=== PATIENT | male | born 1985 | race Two or more races ===

== ENCOUNTER 2018-06-10 10:21 | Emergency (ER) | payer OTHER ==
[~2018-06-10] VITALS: Ht 177.8 cm; Wt 117.0 kg
[2018-06-10 10:35] VITALS: BP 140/92
[2018-06-10] MEDS ORDERED: diphenhydrAMINE 50 MG/ML VIAL IVP ONE (11:15)
[2018-06-10] MEDS ORDERED: FAMOTIDINE 20 MG/2 ML VIAL IVP ONE (11:15)
[2018-06-10] MEDS ORDERED: IV NORMAL SALINE 500ML 500 ML IV ONE (11:15)
[2018-06-10] MEDS ORDERED: HYDR25TA PO (12:40)
[2018-06-10] MEDS ORDERED: FAMO-63 PO (12:40)
--- NOTE | 2018-06-10 12:41 | PHYS DOC ---
Past History Past Medical History: Hypertension Alcohol Use: Occasionally Drug Use: None Adult General Chief Complaint Chief Complaint: ALLERGIC REACTION HPI HPI Patient is a 33-year-old male who presents with allergic symptoms for the past 5 days. 5 days ago his lips started swelling after eating frozen shellfish. This got better after taking oral Benadryl. However over the past 24-48 hours he started having other itchy bumps starting on his back as well as bilateral feet. He was seen at an urgent care this morning given a shot of steroids and sent to the emergency department for further evaluation and treatment. Patient was also seen by his primary care physician the past 24 hours and started on a Medrol Dosepak.[] Review of Systems Review of Systems Constitutional: Denies fever or chills [] Eyes: Denies change in visual acuity, redness, or eye pain [] HENT: Denies nasal congestion or sore throat [] Respiratory: Denies cough or shortness of breath [] Cardiovascular: No chest pain or palpitations[] GI: Denies abdominal pain, nausea, vomiting, bloody stools or diarrhea [] : Denies dysuria or hematuria [] Musculoskeletal: Denies back pain or joint pain [] Integument: See history of present illness[] Neurologic: Denies headache, focal weakness or sensory changes [] Endocrine: Denies polyuria or polydipsia [] All other systems were reviewed and found to be within normal limits, except as documented in this note. Current Medications Current Medications Current Medications Medications (Trade) Dose Ordered Sig/Regina Start Time Stop Time Status Last Admin Dose Admin Diphenhydramine HCl (Benadryl) 50 mg 1X ONCE 06/10/18 11:15 06/10/18 11:16 DC 06/10/18 11:51 50 MG Famotidine (Pepcid Vial) 20 mg 1X ONCE 06/10/18 11:15 06/10/18 11:16 DC 06/10/18 11:51 20 MG Sodium Chloride 500 ml @ 0 mls/hr 1X ONCE 06/10/18 11:15 06/10/18 11:16 DC 06/10/18 11:15 500 MLS/HR Allergies Allergies Allergies Coded Allergies Type Severity Reaction Last Updated Verified No Known Drug Allergies 06/10/18 No Physical Exam Physical Exam Constitutional: Well developed, well nourished, no acute distress, non-toxic appearance. [] HENT: Normocephalic, atraumatic, bilateral external ears normal, oropharynx moist, no oral exudates, nose normal. [] Eyes: PERRLA, EOMI, conjunctiva normal, no discharge. [] Neck: Normal range of motion, no tenderness, supple, no stridor. [] Cardiovascular:Heart rate regular rhythm, no murmur [] Lungs & Thorax: Bilateral breath sounds clear to auscultation [] Abdomen: Bowel sounds normal, soft, no tenderness, no masses, no pulsatile masses. [] Skin: Warm, dry, erythematous wheals on his back coming around to bilateral flanks.. [] Back: No tenderness, no CVA tenderness. [] Extremities: No tenderness, no cyanosis, no clubbing, ROM intact, no edema. [] Neurologic: Alert and oriented X 3, normal motor function, normal sensory function, no focal deficits noted. [] Psychologic: Affect normal, judgement normal, mood normal. [] Current Patient Data Vital Signs Vital Signs Date Time Temp Pulse Resp B/P (MAP) Pulse Ox O2 Delivery O2 Flow Rate FiO2 06/10/18 10:35 97.7 97 20 94 Room Air EKG EKG [] Radiology/Procedures Radiology/Procedures [] Course & Med Decision Making Course & Med Decision Making Pertinent Labs and Imaging studies reviewed. (See chart for details) ED course: Patient arrived, was placed in bed, tolerated exam well. Patient had IV access established was given IV fluids as well as antihistamines which improved his rash. Patient had no shortness of breath. Patient was discharged in improved condition.[] Dragon Disclaimer Dragon Disclaimer This electronic medical record was generated, in whole or in part, using a voice recognition dictation system. Departure Departure: Impression: Primary Impression: Allergic reaction Disposition: 01 HOME, SELF-CARE Condition: IMPROVED Referrals: PCP,UNKNOWN (PCP) Patient Instructions: Food Allergy Additional Instructions: Follow-up with your regular doctor in 2 days. Return to the ER if worsening rash , difficulty breathing, or any other concerns. Scripts Famotidine (PEPCID) 20 Mg Tablet 1 TAB PO BID for allergic reaction, #20 TAB 0 Refills Prov: KEYONNA COELLO DO 06/10/18 Hydroxyzine Hcl (HYDROXYZINE HCL) 25 Mg Tablet 1 TAB PO TID for allergic reaction, #30 TAB Prov: KEYONNA COELLO DO 06/10/18 Problem Qualifiers Primary Impression: Allergic reaction Encounter type: initial encounter Qualified Codes: T78.40XA - Allergy, unspecified, initial encounter KEYONNA COELLO DO Jun 10, 2018 12:41
== END 2018-06-10 12:45 | disposition home or self-care (01) ==
LOC: ER 10:21
DX: T78.40XA Allergy, unspecified, initial encounter (principal); I10 Essential (primary) hypertension; X58.XXXA Exposure to other specified factors, initial encounter
CPT/HCPCS: 96374; 96375; 99283; J1200; J3490; J7040